=== PATIENT | female | born 1990 | race Two or more races ===

== ENCOUNTER 2022-11-26 18:19 | Emergency (ER) | payer BC, OTHER ==
[2022-11-26 18:33] VITALS: BP 90/60; PULSE 105; RESP 18; TEMP 99.1; BMI 21.5
[2022-11-26] MEDS ORDERED: SODIUM CHLORIDE 0.9% 500 ML INFUS.BAG IV ONE (18:59)
[2022-11-26] MEDS ORDERED: morphine CARPU-JECT 2 MG/1 ML DISP.SYRIN IVPUSH ONE (19:22)
[2022-11-26 19:44] LABS: BASO % 0.1 % (0-2.0); HEMOGLOBIN 11.5 GM/dL (10.7-15.3); LYMPH % 16.1 % (8-40); MCH 29.9 pg (25.7-33.7); MCHC 33.8 g/dl (32.0-36.0); MEAN CELL VOLUME 88.5 fl (80-96); MEAN PLT VOLUME 8.6 fl (7.5-11.1); MONO % 4.3 % (3.8-10.2); NEUT % 79.5 % (42.8-82.8); PLATELET COUNT 126 10^3/uL (134-434); RBC 3.84 M/mm3 (3.60-5.2); RDW 13.1 % (11.6-15.6); WHITE BLOOD COUNT 6.5 K/mm3 (4.0-10.0)
[2022-11-26 20:14] LABS: CHLORIDE 108 mmol/L (98-107); POTASSIUM 4.5 mmol/L (3.5-5.1); SODIUM 140 mmol/L (136-145)
[2022-11-26 20:15] LABS: ANION GAP 6 MMOL/L (8-16); CO2 26 mmol/L (21-32); MAGNESIUM 1.9 mg/dL (1.8-2.4)
[2022-11-26 20:16] LABS: BLOOD UREA NITROGEN 8.8 mg/dL (7-18); CALCIUM 7.8 mg/dL (8.5-10.1); GLUCOSE,RANDOM 96 mg/dL (74-106); LIPASE 79 U/L (73-393)
[2022-11-26 20:17] LABS: ALBUMIN 3.3 g/dl (3.4-5.0); AMYLASE 30 U/L (25-115)
[2022-11-26 20:18] LABS: SGOT/AST 21 U/L (15-37); SGPT/ALT 24 U/L (13-61)
[2022-11-26 20:19] LABS: CREATININE 0.6 mg/dL (0.55-1.3)
[2022-11-26 20:20] LABS: PHOSPHOROUS 2.6 mg/dL (2.5-4.9); TOT PROT 6.5 g/dl (6.4-8.2)
[2022-11-26 20:22] LABS: ALK PHOS 58 U/L (45-117); BILIRUBIN,TOTAL < 0.1 mg/dL (0.2-1)
[2022-11-26] MEDS ORDERED: AZITHROMYCIN 250 MG TABLET PO ONE (21:24)
[2022-11-26] MEDS ORDERED: AZITHROMYCIN 500 MG TABLET ONE (21:37)
== END 2022-11-26 21:58 | disposition home or self-care (01) ==
LOC: JER 18:19
PROC: 3E033GC Introduction of Other Therapeutic Substance into Peripheral Vein, Percutaneous Approach (ICD-10-PCS; principal; 2022-11-26)
DX: K52.9 Noninfective gastroenteritis and colitis, unspecified (principal); R10.84 Generalized abdominal pain; R50.9 Fever, unspecified; M79.10 Myalgia, unspecified site; Z20.822 Contact with and (suspected) exposure to COVID-19
CPT/HCPCS: 0241U-QW; 36415; 74177-TC; 80053; 82150; 83690; 83735; 84100; 84703; 85025; 99285-25

== ENCOUNTER 2022-11-26 23:25 | Inpatient (IN) | payer BC ==
[2022-11-27] MEDS ORDERED: morphine CARPU-JECT 4 MG/1 ML DISP.SYRIN IVPUSH ONE (00:04)
[2022-11-27] MEDS ORDERED: SODIUM CHLORIDE 0.9% 500 ML INFUS.BAG IV ONE (00:10)
[2022-11-27] MEDS ORDERED: ACETAMINOPHEN 1000 MG/100 ML BAG IVPB ONE ×2 (00:14→06:53)
[2022-11-27] MEDS ORDERED: ACETAMINOPHEN INJECTION 100 ML IVPB ONE ×3 (00:33→17:14)
[2022-11-27] MEDS ORDERED: AMPICILLIN NA/SULBACTAM NA 1.5 GM in SODIUM CHLORIDE 100 ML IVPB ONE (01:03)
[2022-11-27 02:04] LABS: BASO % 0.1 % (0-2.0); EOS % 0.1 % (0-4.5); HEMATOCRIT 33.3 % (32.4-45.2); HEMOGLOBIN 11.3 GM/dL (10.7-15.3); LYMPH % 22.9 % (8-40); MCH 30.2 pg (25.7-33.7); MCHC 33.8 g/dl (32.0-36.0); MEAN CELL VOLUME 89.2 fl (80-96); MEAN PLT VOLUME 9.3 fl (7.5-11.1); MONO % 5.2 % (3.8-10.2); NEUT % 71.7 % (42.8-82.8); PLATELET COUNT 112 10^3/uL (134-434); RBC 3.73 M/mm3 (3.60-5.2); WHITE BLOOD COUNT 5.4 K/mm3 (4.0-10.0)
[2022-11-27] MEDS ORDERED: AMPICILLIN NA/SULBACTAM NA 1.5 GM VIAL ONE ×2 (02:05→08:37)
[2022-11-27 02:19] LABS: POTASSIUM 4.1 mmol/L (3.5-5.1)
[2022-11-27 02:21] LABS: ALBUMIN 3.1 g/dl (3.4-5.0); BLOOD UREA NITROGEN 6.8 mg/dL (7-18); CALCIUM 7.9 mg/dL (8.5-10.1)
[2022-11-27 02:25] LABS: CREATININE 0.5 mg/dL (0.55-1.3)
[2022-11-27 02:26] LABS: BILIRUBIN,TOTAL 0.2 mg/dL (0.2-1); TOT PROT 6.5 g/dl (6.4-8.2)
[2022-11-27 02:33] LABS: INR 1.05 (0.83-1.09); PROTHROMBIN TIME (PATIENT) 12.2 SEC (9.7-13.0)
[2022-11-27] MEDS ORDERED: ONDANSETRON 4 MG/2 ML VIAL IVPUSH ONE (02:55)
[2022-11-27] MEDS ORDERED: ONDANSETRON 4 MG/2 ML VIAL ONE (02:57)
[2022-11-27 03:31] LABS: EPI CELLS 20 /uL (0-25.1); HYALINE CASTS 0 /uL (0-3.1); URINE APPEARANCE CLEAR; URINE BACTERIA 89 /uL (0-1359); URINE BILIRUBIN NEGATIVE (NEGATIVE); URINE COLOR YELLOW; URINE GLUCOSE (UA) NEGATIVE (NEGATIVE); URINE KETONE NEGATIVE (NEGATIVE); URINE LEUK ESTERASE TRACE (NEGATIVE); URINE NITRITE NEGATIVE (NEGATIVE); URINE PROTEIN NEGATIVE (NEGATIVE); URINE RBC 11 /uL (0-23.9); URINE UROBILINOGEN 0.2 mg/dL (0.2-1.0); URINE WBC 15 /uL (0-25.8)
[2022-11-27] MEDS ORDERED: DEXTROSE 5%-0.45% SALINE 1,000 ML IV SCH (05:30)
[2022-11-27] MEDS ORDERED: morphine CARPU-JECT 2 MG/1 ML DISP.SYRIN IVPUSH ONE (05:36)
[2022-11-27] MEDS ORDERED: ACETAMINOPHEN 1000 MG/100 ML BAG IVPB PRN (06:30)
[2022-11-27 07:48] VITALS: RESP 18
[2022-11-27] MEDS ORDERED: AMPICILLIN NA/SULBACTAM NA 1.5 GM in SODIUM CHLORIDE 100 ML IVPB SCH (09:00)
[2022-11-27] MEDS ORDERED: DEXTROSE 5%-NORMAL SALINE 1,000 ML IV SCH (09:15)
[2022-11-27] MEDS ORDERED: CEFTRIAXONE 1 GM/50 ML BAG ONE (09:53)
[2022-11-27] MEDS: CEFTRIAXONE 1 GM in DEXTROSE 5%-WATER - 50 ML IVPB SCH (10:02)
[2022-11-27] MEDS ORDERED: SODIUM CHLORIDE 1,000 ML IV STA (11:23)
[2022-11-27] MEDS ORDERED: PANTOPRAZOLE SODIUM 40 MG VIAL IVPUSH SCH (11:45)
[2022-11-27] MEDS ORDERED: KETOROLAC TROMETHAMINE 15 MG/ML VIAL IM ONE (11:47)
[2022-11-27] MEDS ORDERED: KETOROLAC TROMETHAMINE 15 MG/ML VIAL IVPUSH ONE (12:20)
[2022-11-27] MEDS ORDERED: PANTOPRAZOLE SODIUM 40 MG VIAL ONE (12:22)
[2022-11-27] MEDS: ACETAMINOPHEN 1000 MG/100 ML BAG IVPB PRN ×2 (17:22→23:05)
[2022-11-27] MEDS ORDERED: SIMETHICONE 80 MG TAB.CHEW (FP) PO ONE (17:34)
[2022-11-27] MEDS: LACTATED RINGERS SOLUTION 1,000 ML/1,000 ML INFUS.BAG IV SCH (18:36)
[2022-11-27 19:03] VITALS: BMI 24.3
[2022-11-27] MEDS: ONDANSETRON 4 MG/2 ML VIAL IVPUSH PRN (22:28)
[2022-11-28] MEDS ORDERED: SIMETHICONE 80 MG TAB.CHEW (FP) PO ONE (00:04)
[2022-11-28] MEDS ORDERED: MELATONIN 5 MG TABLETS PO ONE (00:53)
[2022-11-28] MEDS: ACETAMINOPHEN 1000 MG/100 ML BAG IVPB PRN ×2 (07:05→13:19)
[2022-11-28] MEDS: ONDANSETRON 4 MG/2 ML VIAL IVPUSH PRN (07:11)
[2022-11-28] MEDS ORDERED: SIMETHICONE 80 MG TAB.CHEW (FP) PO PRN ×2 (09:57→15:39)
[2022-11-28] MEDS ORDERED: LACTATED RINGERS SOLUTION 1,000 ML/1,000 ML INFUS.BAG IV STA (09:58)
[2022-11-28 09:59] LABS: BASO % 0.1 % (0-2.0); EOS % 0.5 % (0-4.5); HEMATOCRIT 30.2 % (32.4-45.2); HEMOGLOBIN 9.9 GM/dL (10.7-15.3); LYMPH % 23.2 % (8-40); MCH 29.6 pg (25.7-33.7); MCHC 32.8 g/dl (32.0-36.0); MEAN CELL VOLUME 90.2 fl (80-96); MEAN PLT VOLUME 9.8 fl (7.5-11.1); MONO % 5.3 % (3.8-10.2); NEUT % 70.9 % (42.8-82.8); PLATELET COUNT 143 10^3/uL (134-434); RBC 3.35 M/mm3 (3.60-5.2); RDW 12.6 % (11.6-15.6)
[2022-11-28 10:18] LABS: POTASSIUM 3.1 mmol/L (3.5-5.1)
[2022-11-28 10:26] LABS: CALCIUM 7.6 mg/dL (8.5-10.1)
[2022-11-28 10:27] LABS: MAGNESIUM 1.8 mg/dL (1.8-2.4)
[2022-11-28 10:30] LABS: CREATININE 0.3 mg/dL (0.55-1.3); PHOSPHOROUS 2.9 mg/dL (2.5-4.9)
[2022-11-28] MEDS ORDERED: PANTOPRAZOLE SODIUM 40 MG VIAL IVPUSH SCH (10:30)
[2022-11-28 10:31] LABS: BILIRUBIN,TOTAL 0.2 mg/dL (0.2-1); TOT PROT 5.1 g/dl (6.4-8.2)
[2022-11-28 10:35] LABS: ALBUMIN 2.4 g/dl (3.4-5.0)
[2022-11-28] MEDS: CEFTRIAXONE 1 GM in DEXTROSE 5%-WATER - 50 ML IVPB SCH (11:09)
[2022-11-28 11:49] LABS: ERYTHROCYTE SEDIMENTATION RATE 18 mm/hr (0-20)
[2022-11-28] MEDS ORDERED: ONDANSETRON 4 MG/2 ML VIAL IVPUSH PRN (12:49)
[2022-11-28] MEDS ORDERED: PROCHLORPERAZINE INJECTION 10 MG/2 ML VIAL IM PRN (15:11)
[2022-11-28] MEDS ORDERED: FOSAPREPITANT DIMEGLUMINE 150 MG in SODIUM CHLORIDE 145 ML IVPB ONE (16:00)
[2022-11-28] MEDS ORDERED: BISACODYL 5 MG TABLET.DR (FP) PO ONE (16:00)
[2022-11-28] MEDS: KCL 10 MEQ IVPB 10 MEQ/100 ML INFUS.BAG IVPB SCH ×3 (16:08→23:15)
[2022-11-28] MEDS ORDERED: ALPRAZolam 1 MG TABLET PO PRN (16:10)
[2022-11-28] MEDS ORDERED: PEG 3350/NA SULF BICARB CL/KCL 4000 ML SOLN.RECON PO ONE (17:00)
[2022-11-28] MEDS: LACTATED RINGERS SOLUTION 1,000 ML/1,000 ML INFUS.BAG IV SCH (18:59)
[2022-11-29 09:47] LABS: BASO % 0.1 % (0-2.0); EOS % 0.9 % (0-4.5); HEMATOCRIT 29.3 % (32.4-45.2); LYMPH % 43.7 % (8-40); MCH 29.8 pg (25.7-33.7); MCHC 33.9 g/dl (32.0-36.0); MEAN CELL VOLUME 87.9 fl (80-96); MONO % 6.4 % (3.8-10.2); NEUT % 48.9 % (42.8-82.8); PLATELET COUNT 150 10^3/uL (134-434); RBC 3.34 M/mm3 (3.60-5.2); RDW 12.9 % (11.6-15.6); WHITE BLOOD COUNT 2.9 K/mm3 (4.0-10.0)
[2022-11-29 09:52] LABS: INR 1.19 (0.83-1.09); PROTHROMBIN TIME (PATIENT) 13.8 SEC (9.7-13.0)
[2022-11-29 10:51] LABS: CHLORIDE 113 mmol/L (98-107); POTASSIUM 3.4 mmol/L (3.5-5.1); SODIUM 144 mmol/L (136-145)
[2022-11-29 10:54] LABS: CALCIUM 7.7 mg/dL (8.5-10.1)
[2022-11-29 10:55] LABS: ANION GAP 7 MMOL/L (8-16); CO2 24 mmol/L (21-32)
[2022-11-29 10:56] LABS: GLUCOSE,RANDOM 85 mg/dL (74-106)
[2022-11-29 10:58] LABS: CREATININE 0.3 mg/dL (0.55-1.3)
[2022-11-29 11:02] LABS: BLOOD UREA NITROGEN 2.6 mg/dL (7-18)
[2022-11-29] MEDS: CEFTRIAXONE 1 GM in DEXTROSE 5%-WATER - 50 ML IVPB SCH (12:14)
[2022-11-29 16:10] VITALS: BP 145/65; PULSE 71; TEMP 98.3
[2022-11-30] MEDS ORDERED: PANTOPRAZOLE 40 MG TABLET PO SCH (10:00)
== END 2022-11-29 18:35 | disposition home or self-care (01) | DRG 245 ==
LOC: JER 23:25 → JERBED 11-27 01:08 → J5S 11-27 18:28 → J8W 11-27 23:30
PROVIDERS: ADMIT Internal Medicine; ATTEND Nurse Practitioner Family
PROC: 0DB78ZX Excision of Stomach, Pylorus, Via Natural or Artificial Opening Endoscopic, Diagnostic (ICD-10-PCS; 2022-11-29)
PROC: 0DBK8ZX Excision of Ascending Colon, Via Natural or Artificial Opening Endoscopic, Diagnostic (ICD-10-PCS; 2022-11-29)
PROC: 0DBL8ZX Excision of Transverse Colon, Via Natural or Artificial Opening Endoscopic, Diagnostic (ICD-10-PCS; 2022-11-29)
PROC: 0DBN8ZX Excision of Sigmoid Colon, Via Natural or Artificial Opening Endoscopic, Diagnostic (ICD-10-PCS; 2022-11-29)
PROC: 0DBP8ZX Excision of Rectum, Via Natural or Artificial Opening Endoscopic, Diagnostic (ICD-10-PCS; 2022-11-29)
PROC: 0DBB8ZX Excision of Ileum, Via Natural or Artificial Opening Endoscopic, Diagnostic (ICD-10-PCS; 2022-11-29)
PROC: 0DBH8ZX Excision of Cecum, Via Natural or Artificial Opening Endoscopic, Diagnostic (ICD-10-PCS; 2022-11-29)
PROC: 0DB98ZX Excision of Duodenum, Via Natural or Artificial Opening Endoscopic, Diagnostic (ICD-10-PCS; principal; 2022-11-29 11:15)
DX: K51.811 Other ulcerative colitis with rectal bleeding (principal); K25.3 Acute gastric ulcer without hemorrhage or perforation; E11.9 Type 2 diabetes mellitus without complications; I95.9 Hypotension, unspecified; F17.210 Nicotine dependence, cigarettes, uncomplicated; R53.83 Other fatigue; R10.9 Unspecified abdominal pain; R14.0 Abdominal distension (gaseous); K64.8 Other hemorrhoids
CPT/HCPCS: 0241U-QW; 36415; 71045-TC-FY; 74176-TC; 80048; 80053; 81003; 82272; 83605; 83735; 84100; 85025; 85610; 85651; 85730; 86140; 86850; 86900; 86901; 87045; 87046; 87186; 87324; 87449; 88305-TC; 88341-TC; 93005; 93010; 99285-25; J1453

== ENCOUNTER 2023-06-19 18:08 | Emergency (ER) | payer BC, OTHER ==
[2023-06-19 18:27] VITALS: RESP 18; TEMP 98.6; BMI 21.9
[2023-06-19 19:09] LABS: BASO % 0.3 % (0-2.0); EOS % 0.3 % (0-4.5); HEMATOCRIT 35.9 % (32.4-45.2); HEMOGLOBIN 11.8 GM/dL (10.7-15.3); LYMPH % 32.9 % (8-40); MCH 29.5 pg (25.7-33.7); MEAN CELL VOLUME 89.5 fl (80-96); MEAN PLT VOLUME 8.4 fl (7.5-11.1); MONO % 6.4 % (3.8-10.2); NEUT % 60.1 % (42.8-82.8); PLATELET COUNT 202 10^3/uL (134-434); RBC 4.01 M/mm3 (3.60-5.2); RDW 13.5 % (11.6-15.6); WHITE BLOOD COUNT 5.3 K/mm3 (4.0-10.0)
[2023-06-19 19:17] LABS: EPI CELLS 15 /uL (0-25.1); HCG,QUALITATIVE URINE Negative; HYALINE CASTS 0 /uL (0-3.1); PH,URINE 5.5 (5.0-8.0); URINE APPEARANCE CLEAR; URINE BACTERIA 112 /uL (0-1359); URINE BILIRUBIN NEGATIVE (NEGATIVE); URINE COLOR YELLOW; URINE GLUCOSE (UA) NEGATIVE (NEGATIVE); URINE KETONE NEGATIVE (NEGATIVE); URINE LEUK ESTERASE 1+ (NEGATIVE); URINE NITRITE NEGATIVE (NEGATIVE); URINE PROTEIN NEGATIVE (NEGATIVE); URINE RBC 16 /uL (0-23.9); URINE UROBILINOGEN 0.2 mg/dL (0.2-1.0); URINE WBC 45 /uL (0-25.8)
[2023-06-19 19:49] VITALS: BP 97/83; PULSE 83
[2023-06-19] MEDS ORDERED: MECLIZINE HCL 25 MG TABLET (FP) ONE (19:59)
[2023-06-19] MEDS: MECLIZINE HCL 25 MG TABLET (FP) PO ONE (20:01)
[2023-06-19 20:27] LABS: POTASSIUM 3.5 mmol/L (3.5-5.1)
[2023-06-19 20:29] LABS: CALCIUM 8.8 mg/dL (8.5-10.1)
[2023-06-19 20:30] LABS: ALBUMIN 3.7 g/dl (3.4-5.0)
[2023-06-19 20:33] LABS: CREATININE 0.5 mg/dL (0.55-1.3)
[2023-06-19 20:34] LABS: TOT PROT 7.6 g/dl (6.4-8.2)
[2023-06-19 20:50] LABS: BILIRUBIN,TOTAL 0.2 mg/dL (0.2-1)
== END 2023-06-19 20:49 | disposition home or self-care (01) ==
LOC: JERFT 18:08
DX: R42 Dizziness and giddiness (principal); R00.2 Palpitations; J02.9 Acute pharyngitis, unspecified
CPT/HCPCS: 36415; 80053; 81003; 84484; 84703; 85025; 87651; 93005; 93010; 99284-25